=== PATIENT | female | born 1960 | race Caucasian/White ===

== ENCOUNTER 2020-05-24 16:02 | Emergency (ER) | payer OTHER, SELFPAY ==
[2020-05-24 16:16] VITALS: BP 161/93; PULSE 92; RESP 16; TEMP 36.6; O2SAT 99
--- NOTE | 2020-05-24 16:42 | ED.BACK ---
HPI - Back Pain/Injury General Chief Complaint: Back Pain/Injury Stated Complaint: back pain Source: patient and RN notes reviewed Mode of arrival: ambulatory Limitations: no limitations History of Present Illness HPI Narrative: This is a 59-year-old white female that presented to the urgent care today complaining of lower back pain. According to patient she has a history of lower back pain. She notes that it has worsened. She notes that it usually does not hurt her when she sits down she starting to experience pains when assessing. She describes the pain as a stabbing sensation to her mid lower back. She does work at [employer] and does a lot of lifting, she normally takes naproxen at home to relieve her pain. She notes that the naproxen is not working as well. Patient notes that she has not had any trauma to her back. The patient denies SOB, CP, palpitation, extremity numbness, lightheadedness, dizziness, constipation, diarrhea, chills, or fever. MD elicited complaint: back pain Location: lumbar spine Radiation: none Relieving factors: medication Context: fall and trauma Related Data Home Medications Medication Instructions Recorded Confirmed levothyroxine 112 mcg DAILY 05/24/20 05/24/20 Allergies Allergy/AdvReac Type Severity Reaction Status Date / Time No Known Allergies Allergy Verified 05/24/20 16:04 Review of Systems Review of Systems: Narrative: CONSTITUTIONAL: Denies fever, chills, sweats. EYES: Denies visual changes, redness, discharge. ENT: Denies rhinorrhea, congestion, sore throat, otalgia. CARDIOVASCULAR: Denies chest pain, palpitations, edema. RESPIRATORY: Denies dyspnea, wheezing, cough GASTROINTESTINAL: Denies abdominal pain, nausea, vomiting, diarrhea. GENITOURINARY: Denies dysuria, hematuria, abnormal discharge SKIN: Denies rash or itching. MUSCULOSKELETAL: Patient complains of mid lower back pain that has worsened. Describes the pain as a stabbing sensation to her lower back. NEUROLOGIC: Denies numbness, or focal weakness. PSYCHIATRIC: Denies anxiety or depression. [facility] Family History Family History Father Acute myocardial infarction Mother Carcinoma of colon Social History Social History Gender identity (if verbalized by the patient): Female Exam Narrative: Exam Narrative: GENERAL: This is a well-nourished, well-developed patient, in no apparent distress. HEAD: normocephalic, atraumatic. EYES: PERRL. Sclera clear/white. Vision is grossly intact. EARS: External ears normal, auditory canals clear and without drainage, TMs normal without perforation. Hearing grossly intact. NOSE: External nose normal with no obvious nasal discharge, nares without redness, no rhinorrhea. THROAT: Mucous membranes moist, posterior pharynx clear. NECK: Neck supple, non-tender without lymphadenopathy, masses or thyromegaly. CARDIOVASCULAR: Regular rate and rhythm without murmurs, gallops, or rubs. RESPIRATORY: Clear to auscultation. Breath sounds equal bilaterally. No wheezes, rales, or rhonchi. GASTROINTESTINAL: Abdomen soft, non-tender, nondistended. Bowel sounds are active. No hepato-splenomegaly, or palpable masses. No guarding. SKIN: warm, intact with no suspicious lesions or rash, good texture and turgor. NEURO: awake, alert, and oriented to person, place and time. There were no obvious focal neurologic abnormalities. Steady gait EXTREMITIES: Normal range of motion. No edema. No calf tenderness. Negative Homans sign bilaterally. BACK: Nontender without deformity or crepitance. No flank tenderness. Lumbar spine range of motion normal .strength reflexes and sensation normal. Straight leg test normal Course Vital Signs Vital signs: Vital Signs Temperature 97.9 F 05/24/20 16:16 Pulse Rate 92 05/24/20 16:16 Respiratory Rate 16 05/24/20 16:16 Blood Pressure 161/93 H 05/24/20 16:1
== END 2020-05-24 16:45 | disposition home or self-care (01) ==
PROVIDERS: Emergency Provider Nurse Practitioner
DX: S39.012A Strain of muscle, fascia and tendon of lower back, initial encounter (principal); X58.XXXA Exposure to other specified factors, initial encounter
CPT/HCPCS: 99213; G0463

== ENCOUNTER 2021-01-27 17:06 | Emergency (ER) | payer OTHER, SELFPAY ==
--- NOTE | ~2021-01-27 | XR_ITS ---
EXAMINATION: XR wrist LT 2V INDICATION: Left wrist pain, initial encounter TECHNIQUE: Two views of the left wrist are obtained. COMPARISON: None available FINDINGS: There is an acute, traumatic, closed, transverse fracture of the distal radius. The distal fracture fragment is dorsally displaced approximately 2 mm. There is mild dorsal angulation at the fr acture site. A transverse fracture of the ulnar styloid is noted. Soft tissue swelling surrounds the wrist. No additional acute osseous abnormality is identified. IMPRESSION: 1. Acute fractures of the distal radius and ulnar styloid. Reviewed, dictated and finalized at location A.
[2021-01-27 17:06] VITALS: BP 154/88; PULSE 111; RESP 18; TEMP 36.2; O2SAT 99
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
[2021-01-27 18:27] VITALS: BP 148/72; PULSE 100; RESP 18; O2SAT 99
[2021-01-27] MEDS: MORPHINE SULFATE (*CRX) 4 MG/ML INJ IM (18:27)
--- NOTE | 2021-01-27 18:47 | PC.NURSE ---
splint applied to left wrist by ert. good pms before and after appliction of splint
[2021-01-27 19:48] VITALS: BP 138/79; PULSE 78; RESP 18; O2SAT 99
== END 2021-01-27 19:49 | disposition home or self-care (01) ==
PROVIDERS: Emergency Provider Nurse Practitioner; PCP Emergency Medicine
DX: S52.592A Other fractures of lower end of left radius, initial encounter for closed fracture (principal); S52.612A Displaced fracture of left ulna styloid process, initial encounter for closed fracture; F17.210 Nicotine dependence, cigarettes, uncomplicated; R03.0 Elevated blood-pressure reading, without diagnosis of hypertension; Y04.2XXA Assault by strike against or bumped into by another person, initial encounter
CPT/HCPCS: 29125; 73100; 96372; 99284; A4565; J2270